=== PATIENT | female | born 1935 | race Caucasian/White ===

== ENCOUNTER → 2016-06-29 | Outpatient (CLI) | payer OTHER, MEDICARE ==
--- NOTE | 2016-06-29 15:12 | MR ---
MRI of the Brain (Without Contrast) at 1406 hours Clinical Indication: Hypertension, transient ischemic attacks, memory changes, high risk medication use, G45.9, I10, R41.3, Z79.899, V58.89. Technique: T1-weighted images were acquired axially and sagittally from the foramen magnum to the ve rtex. Axial fast inversion recovery, fast T2-weighted, and diffusion-weighted axial images were obta ined, without contrast. Comparison: MRI March 2008. Findings: The ventricles, cisterns, and sulci are widened consistent with atrophy. No hydrocephalus , midline shift, herniation, or epidural/subdural hematomas. No intracranial hemorrhage or masses. Diffusion-weighted sequence demonstrates no acute infarct. Cerebellar tonsils are in normal position . Pituitary gland is normal in size. Normal signal flow void in the superior sagittal sinus, basila r artery, and bilateral internal carotid arteries indicating patency. Paranasal sinuses and mastoid air cells are clear. Scattered hyperintense T2/FLAIR signal foci throughout bilateral cerebral white matter. Progressive atrophy and white matter ischemic gliosis since March 2008. Impressions 1. Moderate diffuse cerebral atrophy. 2. Mild cerebellar atrophy. 3. No acute infarct, acute hemorrhage, hydrocephalus, mass effect, or herniation. 4. Multiple nonspecific hyperintense T2/FLAIR signal abnormalities in the white matter of bilateral cerebral hemispheres. Differential diagnosis includes severe microvascular ischemic gliosis, postinf ectious/postinflammatory sequela, versus less likely atypical demyelinating disease, or migraine-rela luis sequela.
== END ==
LOC: FIMAGING 12:53
PROVIDERS: ATTEND Family Medicine
DX: G45.9 Transient cerebral ischemic attack, unspecified (principal); R41.3 Other amnesia; I10 Essential (primary) hypertension

== ENCOUNTER → 2016-07-22 | Outpatient (CLI) | payer OTHER, MEDICARE | LOC: FLAB 09:05 | PROVIDERS: ATTEND Internal Medicine Rheumatology | DX: M17.11 Unilateral primary osteoarthritis, right knee (principal) ==

== ENCOUNTER → 2017-03-23 | Outpatient (CLI) | payer OTHER, MEDICARE | LOC: BHFA 14:00 | PROVIDERS: ATTEND Internal Medicine Cardiovascular Disease | DX: G45.9 Transient cerebral ischemic attack, unspecified (principal) ==

== ENCOUNTER 2017-04-29 11:59 | Emergency (ER) | payer OTHER, MEDICARE ==
[2017-04-29 12:11] VITALS: RESP 16; TEMP 98.2
[2017-04-29 14:14] LABS: COLOR YELLOW; LEUKOCYTE ESTERASE,URINE NEGATIVE (NEGATIVE); NITRITE,URINE NEGATIVE (NEGATIVE)
[2017-04-29 14:19] LABS: MUCUS TRACE /lpf (NONE-1+)
--- NOTE | 2017-04-29 14:19 | EDPHY ---
H & P Time Seen by Provider: 04/29/17 13:32 HPI/ROS: CHIEF COMPLAINT: Hallucination and lightheaded HISTORY OF PRESENT ILLNESS: Patient is a history of hyponatremia and recently was started on torsemide new diuretic. She also has had recurrent UTI and is currently on Augmentin. Patient arrives today because of on and off confusion for a month including recurrent treatment for UTI, the last 1 when she was seen at urgent care [facility] 6 days ago. 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 Currently she does not have dysuria which is her typical UTI symptom. Patient does not have dizziness palpitations or syncope currently. REVIEW OF SYSTEMS: Eye: no change in vision ENT: no sore throat Cardiac: no chest pain or syncope Pulmonary: no cough or SOB Abdomen: no vomiting, diarrhea, abdominal pain Musculoskeletal: Chronic lower extremity peripheral edema Skin: no rash Neuro: no headache Constitutional: no fever : HPI A comprehensive 10 point review of systems is otherwise negative aside from elements mentioned in the history of present illness. PAST MEDICAL HISTORY: vascular dementia, anxiety, hypertension, hypothyroid, CRI , TIA, hyponatremia Medications verified include Augmentin, Abilify, thyroid, methenamine, olmesartan, omeprazole, ranitidine, torsemide. Social history: here with daughter General Appearance: Alert and conversant, cooperative. Eyes: No scleral icterus. ENT, Mouth: Normal mucous membranes. Respiratory: Normal respiratory effort, breath sounds equal, lungs are clear to auscultation. Cardiovascular: Regular rate and rhythm. Gastrointestinal: Abdomen is soft and non tender. Neurological: Alert and oriented x3. Normally conversant. Face symmetric, normal movement and sensation in all extremities. Skin: Warm and dry, no rashes. Musculoskeletal: Bilateral peripheral edema and some venous stasis changes, not new. Psychiatric: Not agitated. Emergency Department course/MDM: Discussed with Howie at 1418. 1422: CT head negative, Mao. 1500: Labs discussed, sodium 133 which I do not think requires hospitalization, , urinalysis only 3-5 white blood cells and no bacteria. EKG shows sinus rhythm. I discussed the case in detail with her primary care physician who recommends going home with a slightly increased dose of Abilify given these results. Patient and her daughter state understanding and agreement with plan. More likely to be or vascular dementia than hyponatremia, UTI, intracranial bleed or stroke, cardiac dysrhythmia or ACS. Smoking Status: Never smoked Constitutional: Initial Vital Signs Temperature (C) 36.8 C 04/29/17 12:07 Heart Rate 72 04/29/17 12:07 Respiratory Rate 16 04/29/17 12:07 Blood Pressure 154/74 H 04/29/17 12:07 O2 Sat (%) 92 04/29/17 12:07 O2 Delivery Mode Room Air Allergies/Adverse Reactions: adhesive Allergy (Verified 10/10/15 21:24) chlorhexidine Allergy (Verified 10/10/15 21:24) Other-[facility] Comments diltiazem Allergy (Verified 10/10/15 21:24) doxycycline Allergy (Verified 10/10/15 21:24) levofloxacin [From Levaquin] Allergy (Verified 10/10/15 21:24) lisinopril [From Zestril] Allergy (Verified 10/10/15 21:24) nitrofurantoin [From Macrobid] Allergy (Verified 10/10/15 21:24) nitrofurantoin macrocrystalline [From Macrobid] Allergy (Verified 10/10/15 21:24 ) povidone-iodine [From Betadine] Allergy (Verified 10/10/15 21:24) Rash progesterone Allergy (Verified 10/10/15 21:24) promethazine HCl [From Phenergan] Allergy (Verified 10/10/15 21:24) Other-[facility] Comments soap [From Betadine] Allergy (Verified 10/10/15 21:24) Rash Sulfa (Sulfonamide Antibiotics) Allergy (Verified 10/10/15 21:24) RESPAIR Allergy (Uncoded 10/10/15 21:24) Home Medications: Medication Instructions Recorded Mirtazapine [Remeron soltab 15 mg 7.5 mg PO BID 08/30/14 (*)] Propranolol HCl [Inderal 10mg (*)] 10 mg PO BID PRN 08/30/14 Thyroid,Pork [[place] Thyroid] 30 mg PO DAILY 08/30/14 clonazePAM [Klonopin (*)] 0.25 mg PO BID PRN 08/30/14 Omeprazole [Prilosec 20 mg] 20 mg PO DAILY 08/08/15 Acetaminophen [Tylenol 325mg (*)] 650 mg PO Q6 PRN #0 tab 08/14/15 Azithromycin [Zithromax] 250 mg PO DAILY #2 tab 08/14/15 Fluticasone Nasal [Flonase Nasal 2 sprays [place] DAILY #1 mdi 08/14/15 [place]] Medical Decision Making - Diagnostics EKG Interpretation: 12-lead EKG interpreted by me; official reading is in trace master. My interpretation is sinus rhythm with PVC and late anterior RS transition. Imaging Results: Imaging Impressions Head CT 04/29/17 13:54 Impression: Atrophy and microvascular ischemic disease. Nothing acute. Findings and recommendations discussed with TORREY DEVLIN at 1422 hour, 2016. Final report concurs with initial preliminary interpretation. - Data Points Laboratory Results: Laboratory Results 04/29/17 14:24 04/29/17 14:24 04/29/17 04/29/17 04/29/17 14:24 14:24 13:29 WBC 9.84 10^3/uL H 10^3/uL (3.80-9.50) RBC 4.71 10^6/uL 10^6/uL (4.18-5.33) Hgb 13.8 g/dL g/dL (12.6-16.3) Hct 40.6 % % (38.0-47.0) MCV 86.2 fL fL (81.5-99.8) MCH 29.3 pg pg (27.9-34.1) MCHC 34.0 g/dL g/dL (32.4-36.7) RDW 13.6 % % (11.5-15.2) Plt Count 228 10^3/uL 10^3/uL (150-400) MPV 10.1 fL fL (8.7-11.7) Neut % (Auto) 64.2 % % (39.3-74.2) Lymph % (Auto) 17.6 % % (15.0-45.0) [place] % (Auto) 7.7 % % (4.5-13.0) Eos % (Auto) 8.9 % H % (0.6-7.6) Baso % (Auto) 1.2 % % (0.3-1.7) Nucleat RBC Rel Count 0.0 % % (0.0-0.2) Absolute Neuts (auto) 6.31 10^3/uL 10^3/uL (1.70-6.50) Absolute Lymphs (auto) 1.73 10^3/uL 10^3/uL (1.00-3.00) Absolute Monos (auto) 0.76 10^3/uL 10^3/uL (0.30-0.80) Absolute Eos (auto) 0.88 10^3/uL H 10^3/uL (0.03-0.40) Absolute Basos (auto) 0.12 10^3/uL H 10^3/uL (0.02-0.10) Absolute Nucleated RBC 0.00 10^3/uL 10^3/uL (0-0.01) Immature Gran % 0.4 % % (0.0-1.1) Immature Gran # 0.04 10^3/uL 10^3/uL (0.00-0.10) Sodium 133 mEq/L L mEq/L (134-144) Potassium 4.1 mEq/L mEq/L (3.5-5.2) Chloride 94 mEq/L L mEq/L (97-110) Carbon Dioxide 30 mEq/l mEq/l (22-31) Anion Gap 9 mEq/L mEq/L (8-16) BUN 18 mg/dL mg/dL (7-23) Creatinine 1.1 mg/dL H mg/dL (0.6-1.0) Estimated GFR 48 Glucose 91 mg/dL mg/dL (70-100) Calcium 8.9 mg/dL mg/dL (8.5-10.4) Urine Color YELLOW Urine Appearance CLEAR Urine pH 6.0 (5.0-7.5) Ur Specific [place] 1.009 (1.002-1.030) Urine Protein 3+ H (NEGATIVE) Urine Ketones NEGATIVE (NEGATIVE) Urine Blood NEGATIVE (NEGATIVE) Urine Nitrate NEGATIVE (NEGATIVE) Urine Bilirubin NEGATIVE (NEGATIVE) Urine Urobilinogen NEGATIVE EU EU (0.2-1.0) Ur Leukocyte Esterase NEGATIVE (NEGATIVE) Urine RBC 3-5 /hpf H /hpf (0-3) Urine WBC 3-5 /hpf H /hpf (0-3) Ur Epithelial Cells TRACE /lpf /lpf (NONE-1+) Urine Mucus TRACE /lpf /lpf (NONE-1+) Urine Glucose NEGATIVE (NEGATIVE) Departure - Departure Disposition: Home, Routine, Self-Care Clinical Impression: Vascular dementia Qualifiers: Dementia behavioral disturbance: without behavioral disturbance Qualified Code( s): F01.50 - Vascular dementia without behavioral disturbance Condition: Good Instructions: Aripiprazole (By mouth) Additional Instructions: Dr. Denise recommends slight increase in your Abilify dose. sodium 133 Referrals: Valerie Denise MD [Primary Care Provider] - As per Instructions
[2017-04-29 14:32] LABS: % IMMATURE GRANULYOCYTES 0.4 % (0.0-1.1); ABSOLUTE IMMATURE GRANULOCYTES 0.04 10^3/uL (0.00-0.10); ADD DIFF? NO; ADD MORPH? NO; ADD SCAN? NO; ATYPICAL LYMPHOCYTE FLAG 0 (0-99); FRAGMENT RBC FLAG 0 (0-99); HEMATOCRIT 40.6 % (38.0-47.0); HEMOGLOBIN 13.8 g/dL (12.6-16.3); LEFT SHIFT FLG 0 (0-99); LIPEMIA HEMOLYSIS FLAG 90 (0-99); MEAN CELL HEMOGLOBIN 29.3 pg (27.9-34.1); MEAN CELL VOLUME 86.2 fL (81.5-99.8); MEAN PLATELET VOLUME 10.1 fL (8.7-11.7); PLATELET CLUMPS FLAG 0 (0-99); PLATELET COUNT 228 10^3/uL (150-400); RED BLOOD CELL COUNT 4.71 10^6/uL (4.18-5.33); RED CELL DISTRIBUTION WIDTH 13.6 % (11.5-15.2)
[2017-04-29 14:45] LABS: ANION GAP 9 mEq/L (8-16); CALCIUM 8.9 mg/dL (8.5-10.4); CARBON DIOXIDE 30 mEq/l (22-31); CHLORIDE 94 mEq/L (97-110); CREATININE 1.1 mg/dL (0.6-1.0); GLOMERULAR FILTRATION RATE 48; GLUCOSE 91 mg/dL (70-100); POTASSIUM 4.1 mEq/L (3.5-5.2); SODIUM 133 mEq/L (134-144)
--- NOTE | 2017-04-29 14:58 | CPEKG ---
Heart Rate: 69 RR Interval: 870 P-R Interval: 148 QRSD Interval: 88 QT Interval: 412 QTC Interval: 442 P [place]: 26 QRS [place]: -49 T Wave [place]: 17 EKG Severity - ABNORMAL ECG - EKG Impression: SINUS RHYTHM EKG Impression: VENTRICULAR PREMATURE COMPLEX EKG Impression: LEFT ANTERIOR FASCICULAR BLOCK EKG Impression: ABNRM R PROG, CONSIDER ASMI OR LEAD PLACEMENT Electronically Signed By: Enrique Camargo 29-Apr-2017 15:10:17
[2017-04-29 15:28] VITALS: BP 141/72; PULSE 69; O2SAT 93
== END 2017-04-29 15:27 | disposition home or self-care (01) ==
DX: F01.50 Vascular dementia, unspecified severity, without behavioral disturbance, psychotic disturbance, mood disturbance, and anxiety (principal); I10 Essential (primary) hypertension

== ENCOUNTER → 2017-05-10 | Outpatient (CLI) | payer OTHER, MEDICARE | LOC: BHLMT 09:00 | PROVIDERS: ATTEND Internal Medicine Cardiovascular Disease | DX: R94.31 Abnormal electrocardiogram [ECG] [EKG] (principal); R06.02 Shortness of breath; I10 Essential (primary) hypertension; I51.7 Cardiomegaly | CPT/HCPCS: 78452; 93017; A9500; J2785 ==